=== PATIENT | male | born 1955 | race Caucasian/White ===

== ENCOUNTER 2020-08-27 08:36 | Outpatient (CLI) | payer BC ==
--- NOTE | 2020-08-27 11:35 | CT ---
CT ABDOMEN AND PELVIS WITH IV CONTRAST 08/27/2020 CLINICAL INFORMATION: Diarrhea and abdominal pain. Patient states epigastric abdominal pain for one week. History of cholec ystectomy. COMPARISON: 02/24/2011 Technique: Multiple contiguous axial CT images are obtained through the abdomen and pelvis with IV contrast. Cor onal reformatted images are provided. FINDINGS: Lower Chest: Minimal dependent bibasilar atelectasis. Coronary artery calcifications are visualized Vessels: Vascular calcifications are seen in the abdominal aorta. Abdomen: Portal vein:Patent Gallbladder: Surgically absent. Liver: within normal limits. Spleen: within normal limits. Pancreas: within normal limits. Adrenals: within normal limits. Kidneys: Stable tiny subcentimeter too small to characterize hypodense lesion anterior aspect superio r pole right kidney. Kidneys otherwise demonstrate normal appearance bilaterally, and no enhancing renal mass is seen. Bowel: Suggested mild thickening the region of the pylorus of the stomach. This is probably attributa ble to peristalsis, this is unable to be further evaluated on this exam. Loops of small bowel are normal in caliber. Appendix: The appendix is visualized and normal in caliber. Peritoneum: No ascites or free air; no fluid collection. Small surgical clip is seen in the inferior aspect of the pelvis also present on prior study. Mesentery and Retroperitoneum: No enlarged mesenteric or retroperitoneal lymph nodes. Abdominal Wall: Stable tiny fat-containing umbilical hernia. Pelvis: Reproductive Organs: No pelvic masses. Bladder: within normal limits. Bones: No suspicious lytic or sclerotic osseous lesions. IMPRESSION: 1. No acute findings in the abdomen or pelvis. 2. Suggested mild wall thickening in the region of pylorus of the stomach. This is felt to most likel y be related to peristalsis. However, this would be better evaluated with endoscopy.
== END 2020-08-27 08:37 | disposition home or self-care (01) ==
LOC: BICCT 08:36
PROVIDERS: ATTEND Internal Medicine Gastroenterology
DX: K44.9 Diaphragmatic hernia without obstruction or gangrene (principal); R10.13 Epigastric pain; Z86.010 Personal history of colon polyps
CPT/HCPCS: 74177; 82565